=== PATIENT | male | born 1990 | race Caucasian/White ===

== ENCOUNTER 2017-04-04 19:18 | Emergency (ER) | payer SELFPAY ==
[~2017-04-04] VITALS: Ht 175.3 cm; Wt 82.1 kg
[2017-04-04 19:58] VITALS: BP 145/80; PULSE 122; RESP 19; TEMP 99.3; O2SAT 97
[2017-04-05] MEDS ORDERED: SODIUM CHLORIDE 0.9% FLUSH 10 ML FLUSH IVF PRN (00:15)
[2017-04-05] MEDS ORDERED: MORPHINE SULFATE 4 MG/ML INJ IV PUSH ONE (00:15)
[2017-04-05] MEDS ORDERED: SODIUM CHLOR 0.9% 1000 ML INJ 1,000 ML IV ONE (00:15)
[2017-04-05] MEDS ORDERED: AMPICILLIN-SULBACTAM INJ 3 GM in SODIUM CHLORIDE 0.9% INJ 100 ML IV ONE (00:15)
[2017-04-05] MEDS ORDERED: TETANUS/DIPHTHERIA TOXOID ADULT 0.5 ML VIAL IM ONE (00:15)
[2017-04-05] MEDS ORDERED: ONDANSETRON HCL 4 MG/2 ML VIAL IVP ONE (00:15)
--- NOTE | 2017-04-05 00:18 | PD ---
HPI Chief Complaint: Bite or Sting Time Seen by Provider: 00:08 Travel History International Travel<30 days: No Contact w/Intl Traveler<30days: No Traveled to known affect area: No History of Present Illness HPI 27-year-old male presents to the emergency department by private transportation for evaluation of injury sustained from a dog bite just prior to arrival to the emergency department. Patient states he was bitten on the right hand anterior chest and left lower leg by his roommate's pitbull. Patient's tetanus is unknown. Patient is right-handed. Patient complains of pain to the right hand where he has sustained a laceration to the dorsum of the hand between the second and third digit as well as to the palm of the hand chest distal to the thenar eminence. Bleeding is controlled. Patient also has abrasion to the anterior chest and left ankle. Small puncture wound to the left thigh. Patient states that the pitbull that belongs to his roommate is an indoor animal that does not go outside but he does not believe the animal is current on its vaccinations. The dog is available for quarantine. [facility] Past Medical History Narrative Medical Negative past history negative surgical history; tobacco use alcohol use; nursing notes reviewed ?: Not Social History Tobacco Use: Yes Allergies-Medications (Allergen,Severity, Reaction): Coded Allergies: No Known Allergies (Verified Allergy, Unknown, 04/04/17) Reported Meds & Prescriptions Reported Meds & Active Scripts Active Ibuprofen 800 Mg Tab 800 Mg PO Q8H PRN 12 Days Augmentin (Amoxicillin-Clavulanate) 875-125 Mg Tab 1 Tab PO BID 10 Days Narrative Medication No medications Review of Systems Except as stated in HPI: all other systems reviewed are Neg General / Constitutional: No: Fever, Chills HENT: No: Congestion Cardiovascular: No: Chest Pain or Discomfort Respiratory: No: Shortness of Breath Gastrointestinal: No: Abdominal Pain Musculoskeletal: Positive: Pain (right hand) Skin: Positive Other (multiple puncture wounds, abrasions, and lacerations to the anterior chest right hand left lower leg) Neurologic: No: Weakness Psychiatric: No: Anxiety Hematologic/Lymphatic: No: Lymph Node Enlargement Physical Exam Narrative GENERAL: Well-developed well-nourished male in no acute distress no respiratory distress SKIN: Warm and dry. HEAD: Normocephalic. EYES: No scleral icterus. No injection or drainage. NECK: Supple, trachea midline. No JVD or lymphadenopathy. CARDIOVASCULAR: Regular rate and rhythm without murmurs, gallops, or rubs. Chest wall: Superficial abrasion to the center chest wall overlying the sternum no puncture wound no active bleeding. RESPIRATORY: Breath sounds equal bilaterally. No accessory muscle use. GASTROINTESTINAL: Abdomen soft, non-tender, nondistended. MUSCULOSKELETAL: No cyanosis, or edema. Right hand dorsal aspect 2.5 cm linear laceration parallel to the long axis of the extremity between the second and third metacarpal bones bleeding is controlled with 4 superficial subcentimeter superficial lacerations perpendicular to the long axis of the limb just proximal to the primary distal laceration; palmar aspect just distal to the thenar eminence is a 4 cm linear laceration into the subcutaneous fat without active bleeding patient has intact thumb apposition capillary refill less than 2 seconds per digit digits are neurovascular tendon intact; no deformity is noted. Attention left lower extremity identifies an abrasion overlying the lateral malleolus as well as superficial linear laceration along the lateral aspect of the lower leg 5 cm in length and then a puncture wound to the left proximal lower leg of the thigh. BACK: Nontender without obvious deformity. No CVA tenderness. Data Data Last Documented VS Vital Signs Date Time Temp Pulse Resp B/P (MAP) Pulse Ox O2 Delivery O2 Flow Rate FiO2 04/05/17 02:25 04/05/17 02:18 86 18 95 Room Air 04/04/17 19:58 99.3 Orders Orders Basic Metabolic Panel (Bmp) (04/05/17 00:04) Complete Blood Count With Diff (04/05/17 00:04) Ecg Monitoring (04/05/17 00:04) Ice/Cold Pack (04/05/17 00:04) Iv Access Insert/Monitor (04/05/17 00:04) Wound Care (04/05/17 00:04) Morphine Inj (Morphine Inj) (04/05/17 00:15) Ondansetron Inj (Zofran Inj) (04/05/17 00:15) Sodium Chloride 0.9% Flush (Ns Flush) (04/05/17 00:15) Sodium Chlor 0.9% 1000 Ml Inj (Ns 1000 M (04/05/17 00:15) Ampicillin-Sulbactam Inj (Unasyn Inj) (04/05/17 00:15) Tetanus/Diphtheria Tox Adult (Tetanus/Di (04/05/17 00:15) Hand, Complete (Dod7dim) (04/05/17 ) Wound Culture And Gram Stain (04/05/17 00:04) Lidocaine Pf 1% Inj (Xylocaine-Mpf 1% In (04/05/17 00:30) Mandatory Outpatient Referral (04/05/17 01:46) Wound Care (04/05/17 02:21) Labs Laboratory Tests Test 04/05/17 00:50 White Blood Count 10.9 TH/MM3 Red Blood Count 5.29 MIL/MM3 Hemoglobin 15.2 GM/DL Hematocrit 45.7 % Mean Corpuscular Volume 86.5 FL Mean Corpuscular Hemoglobin 28.7 PG Mean Corpuscular Hemoglobin Concent 33.2 % Red Cell Distribution Width 13.7 % Platelet Count 161 TH/MM3 Mean Platelet Volume 9.7 FL Neutrophils (%) (Auto) 73.2 % Lymphocytes (%) (Auto) 17.2 % Monocytes (%) (Auto) 5.1 % Eosinophils (%) (Auto) 0.4 % Basophils (%) (Auto) 4.1 % Neutrophils # (Auto) 8.0 TH/MM3 Lymphocytes # (Auto) 1.9 TH/MM3 Monocytes # (Auto) 0.6 TH/MM3 Eosinophils # (Auto) 0.0 TH/MM3 Basophils # (Auto) 0.4 TH/MM3 CBC Comment DIFF FINAL Differential Comment Blood Urea Nitrogen 6 MG/DL Creatinine 0.87 MG/DL Random Glucose 103 MG/DL Calcium Level 8.6 MG/DL Sodium Level 141 MEQ/L Potassium Level 3.8 MEQ/L Chloride Level 107 MEQ/L Carbon Dioxide Level 23.4 MEQ/L Anion Gap 11 MEQ/L Estimat Glomerular Filtration Rate 104 ML/MIN MDM Medical Decision Making Medical Screen Exam Complete: Yes Emergency Medical Condition: Yes Medical Record Reviewed: Yes Interpretation(s) Last Impressions Hand X-Ray 04/05/17 0000 Signed Impressions: Service Date/Time: Wednesday, April 05, 2017 00:17 - CONCLUSION: Unremarkable examination of the right hand. Prabhakar Stewart MD CBC & BMP Diagram 04/05/17 00:50 Vital Signs Date Time Temp Pulse Resp B/P (MAP) Pulse Ox O2 Delivery O2 Flow Rate FiO2 04/04/17 19:58 99.3 122 19 145/80 (101) 97 Differential Diagnosis Laceration and puncture wound neurovascular tendon injuries fracture Narrative Course IV access obtained specimens collected patient administered normal saline, morphine sulfate, Zofran, and times one dose of Unasyn Imaging study ordered Wound culture obtained Site irrigated Procedures Procedure Narrative LACERATION LOCATION: Dorsum right hand LENGTH: 2.5 cm NUMBER OF STITCHES/GUY: 2 REPAIR: The area of the laceration was prepped with Betadine and sterilely draped. The laceration was infiltrated with 1% lidocaine plain. The wound was copiously irrigated and explored without evidence of foreign body, tendon injury or neurovascular injury. The wound was closed using 5-0 Prolene. This was a single layer repair. A sterile dressing was applied. The patient was advised to keep the dressing clean and dry. Patient tolerated the procedure well. LACERATION LOCATION: Palm of right hand LENGTH: 4 cm NUMBER OF STITCHES/GUY: 4 REPAIR: The area of the laceration was prepped with Betadine and sterilely draped. The laceration was infiltrated with 1% lidocaine plain. The wound was copiously irrigated and explored without evidence of foreign body, tendon injury or neurovascular injury. The wound was closed using 5-0 proline. This was a single layer repair. A sterile dressing was applied. The patient was advised to keep the dressing clean and dry. Patient tolerated the procedure well. Diagnosis Primary Impression: Animal bite of left lower leg Qualified Codes: S81.852A - Open bite, left lower leg, initial encounter Additional Impressions: Animal bite of hand Qualified Codes: S61.451A - Open bite of right hand, initial encounter Animal bite of chest Qualified Codes: S21.95XA - Open bite of unspecified part of thorax, initial encounter Referrals: Marjorie Sidhu MD 2 days Call office in the AM for appointment Patient Instructions: Narcotic given in the ED, General Instructions Departure Forms: Tests/Procedures, Work Release Special Instructions: no work x 2 days no use of right hand until follow up with hand surgeon Additional Instructions: Keep one site clean and dry Change dressings daily Complete course of antibiotic Return to the emergency department for any signs of inflammation redness swelling drainage infection fever or armpit pain Follow-up with hand surgeon call office in a.m. to schedule follow-up appointment Return to the emergency for free concerns Wound check at 2 days Med/Other Pt SpecificInfo: Prescription(s) given Scripts Ibuprofen (Ibuprofen) 800 Mg Tab 800 MG PO Q8H Y for PAIN GREATER THAN 5 for 12 Days, TAB 0 Refills Prov: Teresa Limon MD 04/05/17 Amoxicillin-Clavulanate (Augmentin) 875-125 Mg Tab 1 TAB PO BID for Infection for 10 Days, TAB 0 Refills Prov: Teresa Limon MD 04/05/17 Disposition: 01 DISCHARGE HOME Condition: Stable Teresa Limon MD Apr 05, 2017 00:18
--- NOTE | 2017-04-05 00:28 | RADRPT ---
EXAM DATE/TIME: 04/05/2017 00:17 [facility] COMPARISON: No previous studies available for comparison. INDICATIONS : Dog bite right hand. MEDICAL HISTORY : None. SURGICAL HISTORY : None. ENCOUNTER: Initial ACUITY: 1 day PAIN SCORE: 5/10 LOCATION: Right hand. FINDINGS: Three view examination of the right hand demonstrates no soft tissue swelling, dislocation, or fractu re. The carpal bones appear intact. The interphalangeal and metacarpophalangeal joints are intact. Bony mineralization is normal. CONCLUSION: Unremarkable examination of the right hand. Prabhakar Stewart MD on April 05, 2017 at 0:24 Board Certified Radiologist. This report was verified electronically.
[2017-04-05] MEDS ORDERED: LIDOCAINE HCL 1% PF 30 ML VIAL INFIL ONE (00:30)
[2017-04-05 01:07] LABS: BASOPHIL # 0.4 TH/MM3 (0-0.2); BASOPHIL % 4.1 % (0.0-2.0); EOSINOPHIL % 0.4 % (0.0-4.0); HEMATOCRIT 45.7 % (39.0-51.0); HEMO FLAGS DIFF FINAL; LYMPH % 17.2 % (9.0-44.0); LYMPHOCYTE # 1.9 TH/MM3 (1.0-4.8); MEAN CELL VOLUME 86.5 FL (80.0-100.0); MEAN CORPUSCULAR HEMOGLOBIN 28.7 PG (27.0-34.0); MEAN CORPUSCULAR HGB CONC 33.2 % (32.0-36.0); MONO % 5.1 % (0.0-8.0); NEUT % 73.2 % (16.0-70.0); PLATELET COUNT 161 TH/MM3 (150-450); RED BLOOD COUNT 5.29 MIL/MM3 (4.50-5.90); RED CELL DISTRIBUTION WIDTH 13.7 % (11.6-17.2); WHITE BLOOD COUNT 10.9 TH/MM3 (4.0-11.0)
[2017-04-05] MEDS ORDERED: AUGM875T3 PO (01:11)
[2017-04-05] MEDS ORDERED: IBUP800T23 PO (01:11)
[2017-04-05 01:15] LABS: POTASSIUM 3.8 MEQ/L (3.5-5.1)
[2017-04-05 01:18] LABS: BICARBONATE 23.4 MEQ/L (21.0-32.0)
[2017-04-05 02:18] VITALS: BP 146/81; PULSE 86; RESP 18; O2SAT 95
== END 2017-04-05 02:32 | disposition home or self-care (01) ==
LOC: PHED 19:18 → PHEFT 04-05 02:32
DX: S81.852A Open bite, left lower leg, initial encounter (principal); S61.451A Open bite of right hand, initial encounter; S21.95XA Open bite of unspecified part of thorax, initial encounter; W54.0XXA Bitten by dog, initial encounter; Z87.891 Personal history of nicotine dependence
CPT/HCPCS: 12002; 73130; 80048; 85025; 87070; 90471; 90714; 96374; 96375; 99284; J0295; J2270; J2405; J7030